=== PATIENT | male | born 1985 | race Caucasian/White ===

== ENCOUNTER → 2021-01-24 | Outpatient (CLI) | payer OTHER ==
[~2021-01-24] MED LIST: AMOXICILLIN875 MG PO; HYDROCODON-ACET15 ML PO; LORTABELXR PO; MEDROLDOSEPACK PO; MULTI VITAMIN1 EACH PO; NAPROSYN500 MG PO; PROVENTIL INH; ZPAK PO
== END ==
LOC: M.ULTRA 08:44
PROVIDERS: ATTEND Family Medicine
DX: R53.82 Chronic fatigue, unspecified (principal); R10.9 Unspecified abdominal pain; E78.5 Hyperlipidemia, unspecified; E03.9 Hypothyroidism, unspecified; R94.5 Abnormal results of liver function studies